=== PATIENT | female | born 1990 | race Caucasian/White ===

== ENCOUNTER 2017-06-06 13:54 | Emergency (ER) | payer OTHER ==
[~2017-06-06] VITALS: Ht 157.5 cm; Wt 75.7 kg
[~2017-06-06 13:54] MED LIST: FLUO10CA13; OXYC-307; ZOLP10TA
[2017-06-06 13:58] VITALS: BP 119/75
[2017-06-06] MEDS ORDERED: METHOCARBAMOL 750 MG TABLET PO ONE (15:00)
[2017-06-06] MEDS ORDERED: IBUPROFEN 200 MG TABLET PO ONE (15:00)
[2017-06-06] MEDS ORDERED: METHOCARBAMOL 750 MG TABLET ONE (16:15)
[2017-06-06] MEDS ORDERED: IBUPROFEN 200 MG TABLET ONE (16:15)
== END 2017-06-06 16:43 | disposition home or self-care (01) ==
LOC: ED 16:40
DX: S16.1XXA Strain of muscle, fascia and tendon at neck level, initial encounter (principal); S29.012A Strain of muscle and tendon of back wall of thorax, initial encounter; S39.012A Strain of muscle, fascia and tendon of lower back, initial encounter; V49.09XA Driver injured in collision with other motor vehicles in nontraffic accident, initial encounter; Y93.89 Activity, other specified; Y92.89 Other specified places as the place of occurrence of the external cause; Y99.8 Other external cause status
CPT/HCPCS: 36415; 72020; 72050; 72072; 72110; 84703; 99285